=== PATIENT | male | born 1965 | race Caucasian/White ===

== ENCOUNTER 2020-09-24 09:36 | Outpatient (CLI) | payer MEDICARE, SELFPAY ==
[2020-09-24 10:08] LABS: Hemoglobin A1C 9.6 % (<5.7)
== END 2020-09-24 09:37 | disposition home or self-care (01) ==
LOC: CHSLAB 09:40
PROVIDERS: PCP Family Medicine; Visit Provider Family Medicine
DX: E11.65 Type 2 diabetes mellitus with hyperglycemia (principal)
CPT/HCPCS: 36415; 83036